=== PATIENT | female | born 1970 | race Caucasian/White ===

== ENCOUNTER 2018-11-05 11:28 | Inpatient (IN) | payer OTHER ==
[~2018-11-05] VITALS: Ht 147.3 cm; Wt 62.9 kg
[2018-11-05 13:42] LABS: ANION GAP 10 mmol/L (8-16); CALCIUM, TOTAL 9.5 mg/dL (8.8-10.5); CARBON DIOXIDE 26 mmol/L (22-29); CHLORIDE 104 mmol/L (98-107); CREATININE 0.88 mg/dL (0.60-1.30); GLOMERULAR FILTR. RATE CALC > 60 mL/min (>60); GLUCOSE,RANDOM 83 mg/dL (70-110); POTASSIUM 4.2 mmol/L (3.5-5.1); SODIUM SERUM 140 mmol/L (136-145); UREA NITROGEN, BLOOD 15 mg/dL (7-18)
[2018-11-05 13:44] LABS: BASOPHILS % (AUTO) 0.1 % (0.0-2.0); EOSINOPHILS % (AUTO) 0.1 % (1.0-6.0); HEMATOCRIT 42.9 % (36-46); HEMOGLOBIN 14.3 g/dL (12.0-16.0); LYMPHOCYTES # (AUTO) 1.2 K/uL (1.0-4.8); LYMPHOCYTES % (AUTO) 17.4 % (22.0-44.0); MEAN CORPUSCULAR HEMOGLOBIN 30.7 pg (26.0-34.0); MEAN CORPUSCULAR HGB CONC 33.4 G/dL (31.0-37.0); MEAN CORPUSCULAR VOLUME 92 fL (80-100); MONOCYTES # (AUTO) 0.7 K/uL (0.1-1.0); MONOCYTES % (AUTO) 10.5 % (2.0-9.0); NEUTROPHILS # (AUTO) 4.8 K/uL (1.8-7.7); NEUTROPHILS % (AUTO) 71.9 % (40.0-70.0); PLATELET COUNT (AUTO) 189 K/uL (150-450); RED BLOOD CELL COUNT(AUTO) 4.67 MIL/uL (4.00-5.20)
[2018-11-05 13:53] LABS: ALANINE AMINOTRANSFERASE 32 U/L (12-78); ALBUMIN 3.7 g/dL (3.4-5.0); ALKALINE PHOSPHATASE 100 U/L (46-116); ASPARTATE AMINOTRANSFERASE 21 U/L (15-37); BILIRUBIN,TOTAL 0.6 mg/dL (0.1-1.0); HCG,QUANTITATIVE 2 mIU/mL (0-6); LIPASE 92 U/L (73-393)
[2018-11-05 14:33] LABS: APPEARANCE,URINE CLOUDY (CLEAR); GLUCOSE, URINE (UA) NEGATIVE (NEGATIVE); KETONES,URINE >=80 mg/dL (NEGATIVE); LEUKOCYTE ESTERASE ,URINE TRACE (NEGATIVE); NITRATE,URINE POSITIVE (NEGATIVE); OCCULT BLOOD,URINE MODERATE (NEGATIVE); PH,URINE 5.5 (5.0-8.0); PROTEIN,URINE TRACE (NEGATIVE)
[2018-11-05 14:47] LABS: BILIRUBIN,URINE PRELIM. POSITIVE (NEGATIVE)
[2018-11-05 14:51] LABS: WBC,URINE 0-2 /HPF (0-5)
[2018-11-05 14:52] LABS: BACTERIA,URINE Moderate /HPF (None Seen)
[2018-11-05 14:57] LABS: SQUAMOUS EPITHELIAL CELL,UR Many /LPF (None Seen)
[2018-11-05] MEDS ORDERED: DIPHENOXYLATE/ATROP 2.5-0.025 MG TABLET PO ONE (15:15)
[2018-11-05] MEDS ORDERED: SODIUM CHLORIDE 0.9% 1,000 ML IV ONE ×4 (15:15→22:30)
[2018-11-05] MEDS ORDERED: ONDANSETRON HCL 4 MG/2 ML VIAL IVP ONE (15:15)
[2018-11-05] MEDS ORDERED: KETOROLAC TROMETHAMINE 30 MG/ML VIAL IVP ONE (15:15)
[2018-11-05] MEDS ORDERED: IOVERSOL 320 MG/ML 100 ML VIAL ONE (15:50)
[2018-11-05] MEDS ORDERED: MetroNIDAZOLE 500 MG/NACL 100 ML IV ONE (19:15)
[2018-11-05] MEDS ORDERED: CIPROFLOXACIN 400 MG/D5% WATER 200 ML IV ONE (19:15)
[2018-11-05] MEDS ORDERED: ACETAMINOPHEN 325 MG TABLET PO ONE (21:00)
[2018-11-05] MEDS ORDERED: ACETAMINOPHEN 325 MG TABLET PO PRN (22:30)
[2018-11-05] MEDS ORDERED: BISACODYL 10 MG RECTAL RECTAL SUPPOSITORY PR PRN (22:30)
[2018-11-05] MEDS ORDERED: ZOLPIDEM TARTRATE 5 MG TABLET PO PRN (22:30)
[2018-11-05] MEDS ORDERED: 0.9% SODIUM CHLORIDE 10 ML SYRINGE IVP PRN (22:30)
[2018-11-05] MEDS ORDERED: HYDROCODONE/ACETAMINOPHEN 5-325 MG TABLET PO PRN (22:30)
[2018-11-05] MEDS ORDERED: ONDANSETRON HCL 4 MG/2 ML VIAL IVP PRN ×2 (22:30)
[2018-11-05] MEDS ORDERED: MAGNESIUM HYDROXIDE SUSPENSION 30 ML UDCUP PO PRN (22:30)
[2018-11-05] MEDS ORDERED: MORPHINE SULFATE 2 MG/ML SYRINGE IVP PRN (22:30)
[2018-11-06] VITALS (8 sets, daily range): BP systolic 82–118; BP diastolic 46–77
[2018-11-06] MEDS ORDERED: PNEUMOCOCCAL VACCINE POLYVALENT 0.5 ML VIAL [PPSV23] IM ONE (03:15)
[2018-11-06] MEDS: ACETAMINOPHEN 325 MG TABLET PO PRN ×3 (03:54→20:28)
[2018-11-06] MEDS: MetroNIDAZOLE 500 MG/NACL 100 ML IV SCH ×3 (04:02→20:19)
[2018-11-06 06:07] LABS: HEMOGLOBIN 11.3 g/dL (12.0-16.0); MEAN CORPUSCULAR HEMOGLOBIN 30.7 pg (26.0-34.0); MEAN CORPUSCULAR HGB CONC 33.2 G/dL (31.0-37.0); MEAN CORPUSCULAR VOLUME 92 fL (80-100); PLATELET COUNT (AUTO) 161 K/uL (150-450); RED BLOOD CELL COUNT(AUTO) 3.68 MIL/uL (4.00-5.20); RED CELL DISTRIBUTION WIDTH 12.8 % (11.5-14.5)
[2018-11-06 06:21] LABS: ALANINE AMINOTRANSFERASE 22 U/L (12-78); ALBUMIN 2.5 g/dL (3.4-5.0); ALKALINE PHOSPHATASE 69 U/L (46-116); ANION GAP 7 mmol/L (8-16); ASPARTATE AMINOTRANSFERASE 21 U/L (15-37); BILIRUBIN,TOTAL 0.4 mg/dL (0.1-1.0); CARBON DIOXIDE 24 mmol/L (22-29); CHLORIDE 108 mmol/L (98-107); CREATININE 0.66 mg/dL (0.60-1.30); GLOMERULAR FILTR. RATE CALC > 60 mL/min (>60); GLUCOSE,RANDOM 93 mg/dL (70-110); POTASSIUM 3.5 mmol/L (3.5-5.1); SODIUM SERUM 139 mmol/L (136-145); TOTAL PROTEIN, SERUM 5.6 g/dL (6.4-8.2); UREA NITROGEN, BLOOD 10 mg/dL (7-18)
[2018-11-06 07:23] LABS: BAND NEUTROPHILS % (MANUAL) 12 % (0-5); LYMPHOCYTES % (MANUAL) 26 % (22-44); MONOCYTES % (MANUAL) 13 % (2-9); PROMYELOCYTES % 1 (0-0); SEGMENTED NEUTROPHILS % 48 % (40-70)
[2018-11-06] MEDS: PANTOPRAZOLE SODIUM 40 MG DR TABLET PO SCH (08:31)
[2018-11-06] MEDS: CIPROFLOXACIN 400 MG/D5% WATER 200 ML IV SCH ×2 (08:31→21:46)
[2018-11-06] MEDS: DOCUSATE SODIUM 100 MG CAPSULE PO SCH ×2 (08:32→20:26)
[2018-11-07] MEDS: MetroNIDAZOLE 500 MG/NACL 100 ML IV SCH ×3 (03:58→19:28)
[2018-11-07 04:35] VITALS: BP 102/65
[2018-11-07 06:07] LABS: BASOPHILS % (AUTO) 0.6 % (0.0-2.0); EOSINOPHILS % (AUTO) 0.5 % (1.0-6.0); HEMATOCRIT 34.9 % (36-46); HEMOGLOBIN 11.9 g/dL (12.0-16.0); LYMPHOCYTES # (AUTO) 1.5 K/uL (1.0-4.8); LYMPHOCYTES % (AUTO) 45.2 % (22.0-44.0); MEAN CORPUSCULAR HEMOGLOBIN 30.9 pg (26.0-34.0); MEAN CORPUSCULAR HGB CONC 34.1 G/dL (31.0-37.0); MEAN CORPUSCULAR VOLUME 91 fL (80-100); MONOCYTES # (AUTO) 0.6 K/uL (0.1-1.0); MONOCYTES % (AUTO) 16.9 % (2.0-9.0); NEUTROPHILS # (AUTO) 1.3 K/uL (1.8-7.7); NEUTROPHILS % (AUTO) 36.8 % (40.0-70.0); PLATELET COUNT (AUTO) 196 K/uL (150-450); RED BLOOD CELL COUNT(AUTO) 3.85 MIL/uL (4.00-5.20); RED CELL DISTRIBUTION WIDTH 12.9 % (11.5-14.5)
[2018-11-07 06:23] LABS: ANION GAP 8 mmol/L (8-16); CALCIUM, TOTAL 8.8 mg/dL (8.8-10.5); CARBON DIOXIDE 24 mmol/L (22-29); CHLORIDE 107 mmol/L (98-107); CREATININE 0.67 mg/dL (0.60-1.30); GLOMERULAR FILTR. RATE CALC > 60 mL/min (>60); GLUCOSE,RANDOM 94 mg/dL (70-110); POTASSIUM 3.7 mmol/L (3.5-5.1); SODIUM SERUM 139 mmol/L (136-145); UREA NITROGEN, BLOOD 6 mg/dL (7-18)
[2018-11-07 07:12] VITALS: BP 98/55
[2018-11-07] MEDS: CIPROFLOXACIN 400 MG/D5% WATER 200 ML IV SCH ×2 (08:06→20:32)
[2018-11-07] MEDS: DOCUSATE SODIUM 100 MG CAPSULE PO SCH ×2 (09:00→20:34)
[2018-11-07] MEDS ORDERED: SODIUM CHLORIDE 0.9% 1,000 ML IV ONE (10:00)
[2018-11-07] MEDS ORDERED: SODIUM CHLORIDE 0.9% 250 ML IV ONE (10:00)
[2018-11-07] MEDS: PANTOPRAZOLE SODIUM 40 MG DR TABLET PO SCH (10:30)
[2018-11-07 11:27] VITALS: BP 100/62
[2018-11-07 15:58] VITALS: BP 102/56
[2018-11-07] MEDS: LACTOBACILLUS ACIDOPHILUS/BULGARICUS GRANULES PACKET PO SCH ×2 (16:10→20:32)
[2018-11-07 20:25] VITALS: BP 117/78
[2018-11-08 00:32] VITALS: BP 98/65
[2018-11-08 04:11] VITALS: BP 105/58
[2018-11-08] MEDS ORDERED: SODIUM CHLORIDE 0.9% 250 ML IV ONE (04:15)
[2018-11-08] MEDS: MetroNIDAZOLE 500 MG/NACL 100 ML IV SCH (04:22)
[2018-11-08 05:44] LABS: BASOPHILS % (AUTO) 0.8 % (0.0-2.0); EOSINOPHILS % (AUTO) 0.4 % (1.0-6.0); HEMATOCRIT 35.1 % (36-46); HEMOGLOBIN 11.9 g/dL (12.0-16.0); LYMPHOCYTES # (AUTO) 1.8 K/uL (1.0-4.8); LYMPHOCYTES % (AUTO) 47.2 % (22.0-44.0); MEAN CORPUSCULAR HEMOGLOBIN 30.6 pg (26.0-34.0); MEAN CORPUSCULAR HGB CONC 33.8 G/dL (31.0-37.0); MEAN CORPUSCULAR VOLUME 91 fL (80-100); MONOCYTES # (AUTO) 0.5 K/uL (0.1-1.0); MONOCYTES % (AUTO) 13.4 % (2.0-9.0); NEUTROPHILS # (AUTO) 1.5 K/uL (1.8-7.7); NEUTROPHILS % (AUTO) 38.2 % (40.0-70.0); PLATELET COUNT (AUTO) 208 K/uL (150-450); RED BLOOD CELL COUNT(AUTO) 3.88 MIL/uL (4.00-5.20); RED CELL DISTRIBUTION WIDTH 12.7 % (11.5-14.5)
[2018-11-08 05:52] LABS: ANION GAP 5 mmol/L (8-16); CALCIUM, TOTAL 8.6 mg/dL (8.8-10.5); CARBON DIOXIDE 27 mmol/L (22-29); CHLORIDE 107 mmol/L (98-107); CREATININE 0.74 mg/dL (0.60-1.30); GLOMERULAR FILTR. RATE CALC > 60 mL/min (>60); GLUCOSE,RANDOM 94 mg/dL (70-110); POTASSIUM 3.6 mmol/L (3.5-5.1); SODIUM SERUM 139 mmol/L (136-145); UREA NITROGEN, BLOOD 8 mg/dL (7-18)
[2018-11-08 07:35] VITALS: BP 102/57
[2018-11-08] MEDS: PANTOPRAZOLE SODIUM 40 MG DR TABLET PO SCH (08:33)
[2018-11-08] MEDS: CIPROFLOXACIN 400 MG/D5% WATER 200 ML IV SCH (08:33)
[2018-11-08] MEDS: DOCUSATE SODIUM 100 MG CAPSULE PO SCH (09:00)
[2018-11-08] MEDS: LACTOBACILLUS ACIDOPHILUS/BULGARICUS GRANULES PACKET PO SCH (09:00)
[2018-11-08 11:00] VITALS: BP 98/67
[2018-11-08] MEDS ORDERED: CIPR-278 PO (11:11)
[2018-11-08] MEDS ORDERED: METR500 PO (11:11)
[2018-11-08 11:16] VITALS: BP 109/72
== END 2018-11-08 13:30 | disposition home or self-care (01) | DRG 245 ==
LOC: EMS 11:28 → 5S 23:00
PROVIDERS: ADMIT Internal Medicine; ATTEND Internal Medicine
DX: K51.00 Ulcerative (chronic) pancolitis without complications (principal); I95.9 Hypotension, unspecified; N39.0 Urinary tract infection, site not specified; E86.0 Dehydration; E78.00 Pure hypercholesterolemia, unspecified; E78.5 Hyperlipidemia, unspecified; I10 Essential (primary) hypertension
CPT/HCPCS: 74177; 76700; 87045; 87086; 89055; 93005; J0744; J1885; J2405; J3490; J7030; J7050

== ENCOUNTER 2021-09-22 10:25 | Emergency (ER) | payer OTHER ==
[~2021-09-22] VITALS: Ht 157.5 cm; Wt 59.1 kg
[~2021-09-22 10:25] MED LIST: CIPR-278 PO; METR500 PO
[2021-09-22] MEDS ORDERED: ACETAMINOPHEN 500 MG TABLET PO ONE (11:30)
[2021-09-22 13:17] VITALS: BP 133/73
== END 2021-09-22 13:44 | disposition home or self-care (01) ==
LOC: EMS 10:25
DX: M25.522 Pain in left elbow (principal); M25.512 Pain in left shoulder; E78.00 Pure hypercholesterolemia, unspecified; W18.2XXA Fall in (into) shower or empty bathtub, initial encounter; Y93.89 Activity, other specified; Y92.89 Other specified places as the place of occurrence of the external cause; Y99.8 Other external cause status
CPT/HCPCS: 99284